=== PATIENT | female | born 1940 | race Caucasian/White ===

== ENCOUNTER → 2017-09-19 | Outpatient (CLI) | payer MEDICARE, OTHER ==
[~2017-09-19] MED LIST: ALLEGRA180 MG; ALTACE10 M1 PO; ASPIRIN81 M1 PO; ATIVAN0.5 MG PO; CALCIUM 1200 MG PO; DICYCLOMINE HCL10 MG PO; FLAGYL250 MG PO; IRON PO; LEVAQUIN500 MG PO; LEXAPRO20 MG PO; LIPITOR10 MG PO; LISINOPRIL10 MG PO; METFORMIN HCL500 MG PO; METOPROLOL TART25 MG PO; OMEPRAZOLE PO; PRIMIDONE50 MG PO; VITAMIN; VITAMIN B12; VITAMIN D-40400 UNIT; VITAMIN D3400 UNIT PO; [UNRECOGNIZED DRUG - OTHER] PO
--- NOTE | 2017-09-19 13:56 | Diagnostic Imaging Report ---
EXAM: DXA BONE DENSITY INDICATIONS: OSTEOPOROSIS SCREENING COMPARISON: None. FINDINGS: Proximal left femur bone mineral density (BMD) (g/cm2):0.8 Femur T-score (standard deviation relative to young adult mean BMD): -0.5 Femur Z-score (standard deviation relative to age-matched control group):1.7 Lumbar bone mineral density (BMD) (g/cm2):1.2 Lumbar T-score (standard deviation relative to young adult mean BMD): 1.2 Lumbar Z-score (standard deviation relative to age-matched control group):3.8 Change since prior exam (%): Femur:Not applicable. Spine:Not applicable. Change since oldest prior exam (%): Femur:Not applicable. Spine:Not applicable. CONCLUSION: Bone mineral density is classified as normal. Fracture risk is not increased. World Health Organization Classification: *The Z-score is provided for informational purposes. The T-score is preferable for clinical decisions. When comparing exams, a change of >4% is considered statistically significant. SUGGESTED RECOMMENDATIONS: Normal \T\ Osteopenia:Consideration should be given to use of calcium supplementation, daily multiple vitamins and adequate exercise, as preventive measures against osteoporosis, if clinically indicated. Osteoporosis \T\ Severe Osteoporosis:In addition to the above, consideration should be given to medical therapy against osteoporosis, if clinically indicated. Dictated by: John Jackson M.D. on 09/19/2017 at 13:55 Electronically approved by: John Jackson M.D. on 09/19/2017 at 13:55
== END ==
LOC: MAMMO 12:05
DX: Z12.31 Encounter for screening mammogram for malignant neoplasm of breast (principal); Z13.820 Encounter for screening for osteoporosis
CPT/HCPCS: 77080

== ENCOUNTER → 2018-02-11 | Outpatient (CLI) | payer MEDICARE, OTHER ==
--- NOTE | 2018-02-11 14:01 | Diagnostic Imaging Report ---
PROCEDURE:L-SPINE COMPLETE COMPARISON:05/24/16 INDICATIONS:LOW BACK PAIN FINDINGS: There are 5 lumbar-type vertebral bodies. The vertebral bodies are well-aligned without evidence of spondylolisthesis. Vertebral body heights are maintained. There are no fractures, lytic or blastic lesions. Multilevel degenerative changes, marked by disc space narrowing and mild marginal osteophytosis. L4-L5 and L5-S1 facet arthropathy. Atherosclerotic calcification of the abdominal aorta. CONCLUSION: Multilevel degenerative changes of lumbar spine. No acute fracture or subluxation. Dictated by: Du Enrique M.D. on 02/11/2018 at 14:04 Electronically approved by: Du Enrique M.D. on 02/11/2018 at 14:04
--- NOTE | 2018-02-11 14:02 | Diagnostic Imaging Report ---
PROCEDURE:HIPS BILAT TWO VWS(+/- PELVIS) INDICATION:Bilateral hip pain. COMPARISON:Right hip x-ray dated 10/11/09 FINDINGS: See conclusion. CONCLUSION: No acute fracture or dislocation of the bilateral hips. Mild degenerative changes. Dictated by: Du Enrique M.D. on 02/11/2018 at 14:06 Electronically approved by: Du Enrique M.D. on 02/11/2018 at 14:06
== END ==
LOC: RAD 12:40
DX: M54.5 Low back pain (principal); M25.552 Pain in left hip; M25.551 Pain in right hip
CPT/HCPCS: 72110; 73521

== ENCOUNTER → 2018-03-06 | Day surgery (SDC) | payer MEDICARE, OTHER ==
[2018-03-04 14:11] LABS: BASOPHILS # (AUTO) 0.1 (0.0-0.1); EOSINOPHILS # (AUTO) 0.2 (0.0-0.4); EOSINOPHILS % 1.9 % (0.0-6.0); HEMATOCRIT 30.3 % (34.2-44.1); HEMOGLOBIN 8.5 g/dL (12.0-16.0); LYMPHOCYTES # (AUTO) 2.5 (1.0-3.2); LYMPHOCYTES % 27.3 % (18.0-39.1); MEAN CORPUSCULAR HEMOGLOBIN 21.9 pg (28-32); MEAN CORPUSCULAR HGB CONC 28.1 g/dL (31-35); MEAN CORPUSCULAR VOLUME 77.9 fL (81-99); MONOCYTES # (AUTO) 0.7 (0.2-0.8); MONOCYTES % 7.8 % (4.4-11.3); NEUTROPHILS # (AUTO) 5.6 (2.1-6.9); NEUTROPHILS % 61.8 % (38.7-80.0); PLATELET COUNT 457 x10e3/uL (140-360); RED BLOOD COUNT 3.89 x10e6/uL (3.6-5.1); RED CELL DISTRIBUTION WIDTH 16.8 % (11.7-14.4)
[2018-03-04 15:18] LABS: HYPOCHROMASIA SLIGHT; PLATELET ESTIMATE MODERATELY INCREASED; PLATELET MORPHOLOGY COMMENT NORMAL; POIKILOCYTOSIS SLIGHT; RBC MORPHOLOGY COMMENT NORMAL
[~2018-03-06] MED LIST changes: +ACETAMINOPHEN 1000 MG/100 ML 100 ML IV ONE; +ASPIR 8181 MG; +CALCIUM ACETAT667 M1; +FENTANYL CITRATE/PF 100MCG/2 ML INJ ONE; +GABAPENTIN100 MG; +GLIMEPIRIDE2 MG PO; +GLYCOPYRROLATE INJ 0.2 MG/ML VIAL ONE; +LIDOCAINE HCL 2% LOCAL INJ 5 ML SDV VIAL INJ ONE; +MELATONIN3 MG PO; +METOCLOPRAMIDE HCL 10 MG/2ML VIAL ONE; +MIDAZOLAM HCL 2 MG/2 ML VIAL ONE; +NORVASC5 MG PO; +PROPOFOL IV EMULSION 10 MG/ML 50 ML VIAL ONE; +SYNTHROID50 MCG PO; +VITAMIN D1000 UNI1 PO
--- NOTE | 2018-03-06 14:26 | Operative Report ---
DATE OF PROCEDURE: March 06, 2018 REFERRING PHYSICIAN: Dr. Gene Moreland. PROCEDURE PERFORMED: Esophagogastroduodenoscopy with esophageal dilatation and biopsies. INDICATION FOR PROCEDURE: Dysphagia. MEDICATION: Patient was done under MAC. Please see anesthesiologist's note. PROCEDURE: With the patient in left lateral decubitus position, the flexible fiberoptic Olympus gastroscope was introduced into the esophagus under direct visualization without any difficulty. There was some patchy erythema noted in distal esophagus. There was a mild stricture noted at the GE junction. It was dilated to size 52-Cambodian Carias. The scope was then advanced with ease into the stomach, traversing a small hiatal hernia. There was a nodule that was noted in the hiatal hernia sac and that was biopsied. Multiple polyps were noted in the body of the stomach. They were hyperplastic appearing. Some were partially excised with cold biopsy forceps. The mucosa overlying the antrum revealed some diffuse erythema and low-grade edema and biopsies were obtained and sent to stain for H. pylori. The pylorus was intubated with ease and the scope was advanced all the way to the 2nd portion of the duodenum. The scope was then withdrawn slowly. Mucosa overlying the proximal 2nd portion and the duodenal bulb overall appeared to be within normal limits. The scope was then withdrawn back into the stomach and retroflexed and mucosa overlying the fundus appeared to be within normal limits. The previously described hiatal hernia was also noted in the retroflexed position. The scope was then straightened out and was subsequently withdrawn. Patient tolerated the procedure well. IMPRESSIONS 1. Distal esophagitis, mild. 2. Esophageal stricture at gastroesophageal junction, dilated to size 52-Cambodian Carias. 3. Small hiatal hernia, minute nodule in the hiatal hernia sac biopsied. 4. Gastritis, biopsied. Biopsies sent to stain for Helicobacter pylori. 5. Gastric polyps, body, hyperplastic appearing, some partially excised with cold biopsy forceps. PLAN: Follow up histology. Increase omeprazole to 40 mg 1 p.o. a.c. b.i.d. Job#: [id number] TA cc:GENE MORELAND MD
== END | disposition home or self-care (01) ==
LOC: ENDO 09:45
PROVIDERS: ATTEND Internal Medicine Gastroenterology
DX: K22.2 Esophageal obstruction (principal); K31.7 Polyp of stomach and duodenum; K29.70 Gastritis, unspecified, without bleeding; K21.9 Gastro-esophageal reflux disease without esophagitis; K44.9 Diaphragmatic hernia without obstruction or gangrene; K20.9 Esophagitis, unspecified; K31.89 Other diseases of stomach and duodenum; G62.9 Polyneuropathy, unspecified; I10 Essential (primary) hypertension; E11.9 Type 2 diabetes mellitus without complications; E03.9 Hypothyroidism, unspecified; B15.9 Hepatitis A without hepatic coma; R00.1 Bradycardia, unspecified; Z88.0 Allergy status to penicillin; Z01.810 Encounter for preprocedural cardiovascular examination; Z01.812 Encounter for preprocedural laboratory examination; Z79.84 Long term (current) use of oral hypoglycemic drugs; Z79.82 Long term (current) use of aspirin; Z68.35 Body mass index [BMI] 35.0-35.9, adult; Z86.73 Personal history of transient ischemic attack (TIA), and cerebral infarction without residual deficits; Z87.891 Personal history of nicotine dependence
CPT/HCPCS: 36415 ×2; 43239; 43450; 82948; 85025; 88305; 88312; 93005; J2001; J2250; J2765

== ENCOUNTER 2018-04-24 11:50 | Emergency (ER) | payer MEDICARE, OTHER ==
[~2018-04-24] VITALS: Ht 152.4 cm; Wt 84.4 kg
[~2018-04-24 11:50] MED LIST changes: -ACETAMINOPHEN 1000 MG/100 ML 100 ML IV ONE; -FENTANYL CITRATE/PF 100MCG/2 ML INJ ONE; -GLYCOPYRROLATE INJ 0.2 MG/ML VIAL ONE; -LIDOCAINE HCL 2% LOCAL INJ 5 ML SDV VIAL INJ ONE; -METOCLOPRAMIDE HCL 10 MG/2ML VIAL ONE; -MIDAZOLAM HCL 2 MG/2 ML VIAL ONE; -PROPOFOL IV EMULSION 10 MG/ML 50 ML VIAL ONE
[2018-04-24 12:59] LABS: BASOPHILS # (AUTO) 0.1 (0.0-0.1); BASOPHILS % 0.8 % (0.0-1.0); EOSINOPHILS # (AUTO) 0.1 (0.0-0.4); EOSINOPHILS % 1.4 % (0.0-6.0); HEMATOCRIT 32.9 % (34.2-44.1); HEMOGLOBIN 9.1 g/dL (12.0-16.0); LYMPHOCYTES # (AUTO) 2.2 (1.0-3.2); LYMPHOCYTES % 22.9 % (18.0-39.1); MEAN CORPUSCULAR HEMOGLOBIN 21.7 pg (28-32); MEAN CORPUSCULAR HGB CONC 27.7 g/dL (31-35); MEAN CORPUSCULAR VOLUME 78.5 fL (81-99); MONOCYTES # (AUTO) 0.6 (0.2-0.8); MONOCYTES % 6.1 % (4.4-11.3); NEUTROPHILS # (AUTO) 6.6 (2.1-6.9); NEUTROPHILS % 68.5 % (38.7-80.0); PLATELET COUNT 516 x10e3/uL (140-360); RED BLOOD COUNT 4.19 x10e6/uL (3.6-5.1); RED CELL DISTRIBUTION WIDTH 17.2 % (11.7-14.4)
--- NOTE | 2018-04-24 13:11 | Diagnostic Imaging Report ---
Examination: Single AP view of the chest. COMPARISON: 11/14/2015 INDICATION: Chest pain DISCUSSION: Lungs remain well-inflated. No focal airspace consolidation, pleural effusion, or pneumothorax. Atherosclerotic calcification of the thoracic aorta. Cardiomediastinal contour and pulmonary vasculature are otherwise within normal limits. No acute osseous abnormality. IMPRESSION: 1. No acute cardiopulmonary abnormalities. Signed by: Dr. Ant Salazar M.D. on 04/24/2018 1:07 PM
[2018-04-24 13:27] LABS: INR 1.06
[2018-04-24 13:28] LABS: PARTIAL THROMBOPLASTIN TIME 24.8 seconds (23.8-35.5)
[2018-04-24 13:42] LABS: ALANINE AMINOTRANSFERASE 19 IU/L (0-55); ALBUMIN 3.9 g/dL (3.5-5.0); ALBUMIN/GLOBULIN RATIO 1.2 (0.8-2.0); ALKALINE PHOSPHATASE 55 IU/L (40-150); AMYLASE 28 U/L (25-125); ANION GAP 16.6 mmol/L (8-16); BLOOD UREA NITROGEN 15 mg/dL (7-26); BUN/CREATININE RATIO 18 (6-25); CALCIUM 9.3 mg/dL (8.4-10.2); CARBON DIOXIDE 23 mmol/L (22-29); CHLORIDE 104 mmol/L (98-107); CREATINE KINASE 136 IU/L (29-168); CREATININE, SERUM 0.84 mg/dL (0.57-1.11); EST GLOMERULAR FILTRATION RATE > 60 ML/MIN (60-); GLUCOSE 119 mg/dL (74-118); LIPASE 20 U/L (8-78); MAGNESIUM 1.8 MG/DL (1.3-2.1); POTASSIUM 4.6 mmol/L (3.5-5.1); SODIUM 139 mmol/L (136-145)
[2018-04-24 14:53] LABS: CLARITY,URINE CLEAR (CLEAR); COLOR,URINE YELLOW (YELLOW); LEUKOCYTE ESTERASE ,URINE NEGATIVE (NEGATIVE); NITRITE,URINE NEGATIVE (NEGATIVE); PROTEIN,URINE DIPSTICK NEGATIVE (NEGATIVE)
[2018-04-24 14:54] LABS: BILIRUBIN,URINE NEGATIVE (NEGATIVE); KETONES,URINE NEGATIVE (NEGATIVE); URINE UROBILINOGEN 0.2 mg/dL (0.2 - 1)
[2018-04-24 15:03] LABS: BACTERIA,URINE RARE /HPF; EPITHELIAL CELLS,URINE FEW /LPF
[2018-04-24] MEDS ORDERED: SODIUM CHLORIDE 0.9% 50ML 50 ML ONE (15:24)
[2018-04-24] MEDS ORDERED: IOPAMIDOL 370 MG/ML 200 ML INFUS..BTL INJ ONE (15:25)
--- NOTE | 2018-04-24 15:32 | Diagnostic Imaging Report ---
EXAM: CT of the abdomen and pelvis WITH contrast HISTORY: Abdominal pain, diffuse COMPARISON: CT of the abdomen and pelvis October 10, 2009. TECHNIQUE: The abdomen and pelvis were scanned utilizing a multidetector helical scanner. Coronal and sagittal reformats are provided. PROTOCOL: Routine IV CONTRAST: 100 cc of Isovue-370. ORAL CONTRAST: Water RADIATION DOSE: Total DLP: 708.52 mGy*cm Estimated effective dose: (DLP x 0.015 x size factor) Dose modulation, iterative reconstruction, and/or weight based adjustment of the mA/kV was utilized to reduce the radiation dose to as low as reasonably achievable. COMPLICATIONS: None FINDINGS: Lower thorax: Mild lingular atelectasis versus scarring. Moderate sliding hiatal hernia. Stable right lung base 5 mm calcified granuloma. ABDOMEN/PELVIS: Hepatobiliary: Gallbladder is absent. The common bile duct remains dilated and minimal intrahepatic biliary dilation, likely the sequela reservoir effect. A few nonspecific, indeterminate liver hypodensities which are too small to characterize, statistically most likely small cysts. Spleen: No splenomegaly. Pancreas: No focal masses or ductal dilatation. Adrenals: Increased interval size of the indeterminate right adrenal gland nodule, increased from 12 mm to 19 mm. No left adrenal nodule. Kidneys/Ureters: Markedly decreased size of the exophytic lesion off the interpolar region of the right kidney, now 4 mm in diameter. No radiopaque stone or hydronephrosis. Pelvic Organs/Bladder: Unremarkable. Peritoneum/Retroperitoneum: No free air or fluid. Lymph nodes: No lymphadenopathy. Vessels: Diffuse scattered atherosclerotic vascular calcifications. GI Tract: The stomach is decompressed, the mean evaluation. No bowel dilation. Prominent sigmoid diverticulosis, without CT evidence of acute diverticulitis. Segments of the colon are not completely distended, which also limits evaluation of these regions. Bones and Soft Tissue: A small fat-containing umbilical hernia, without associated inflammatory changes. No aggressive osseous lesion. Stable right iliac bone island. Multilevel mild to severe degenerative changes of the axial skeleton. IMPRESSION: 1. Moderate hiatal hernia. 2. Interval increase in the indeterminate right adrenal nodule, now 19 mm. Recommend a follow-up nonemergent CT or MRI of the abdomen with and without contrast for further evaluation. 3. Likely multiple small hepatic cysts. 4. Colonic diverticulosis. 5. Small fat-containing umbilical hernia. Signed by: Artemio Starks.O., M.M.M. on 04/24/2018 3:28 PM
[2018-04-24 16:44] VITALS: BP 140/56
== END 2018-04-24 16:46 | disposition home or self-care (01) ==
LOC: ER 11:50
DX: R10.11 Right upper quadrant pain (principal); R10.12 Left upper quadrant pain; I10 Essential (primary) hypertension; E11.9 Type 2 diabetes mellitus without complications; E78.00 Pure hypercholesterolemia, unspecified; K21.9 Gastro-esophageal reflux disease without esophagitis; Z86.73 Personal history of transient ischemic attack (TIA), and cerebral infarction without residual deficits
CPT/HCPCS: 36415; 71045; 74177; 80053; 81001; 82150; 82550; 82553; 83605; 83690; 83735; 83880; 84484; 85025; 85610; 85730; 87086; 93005; 99283; Q9967

== ENCOUNTER → 2019-06-19 | Outpatient (CLI) | payer MEDICARE, OTHER | LOC: MAMMO 12:37 | DX: Z12.31 Encounter for screening mammogram for malignant neoplasm of breast (principal) | CPT/HCPCS: 77067 ==

== ENCOUNTER → 2019-09-03 | Day surgery (SDC) | payer MEDICARE, OTHER ==
[2019-09-01 14:19] LABS: BASOPHILS # (AUTO) 0.1 (0.0-0.1); BASOPHILS % 0.9 % (0.0-1.0); EOSINOPHILS # (AUTO) 0.1 (0.0-0.4); HEMATOCRIT 31.6 % (34.2-44.1); HEMOGLOBIN 8.6 g/dL (12.0-16.0); LYMPHOCYTES # (AUTO) 1.4 (1.0-3.2); MEAN CORPUSCULAR HEMOGLOBIN 20.8 pg (28-32); MEAN CORPUSCULAR HGB CONC 27.2 g/dL (31-35); MEAN CORPUSCULAR VOLUME 76.3 fL (81-99); MONOCYTES # (AUTO) 0.7 (0.2-0.8); MONOCYTES % 7.9 % (4.4-11.3); NEUTROPHILS # (AUTO) 6.6 (2.1-6.9); NEUTROPHILS % 73.9 % (38.7-80.0); PLATELET COUNT 499 x10e3/uL (140-360); RED BLOOD COUNT 4.14 x10e6/uL (3.6-5.1); RED CELL DISTRIBUTION WIDTH 17.8 % (11.7-14.4)
[2019-09-01 14:33] LABS: BLOOD UREA NITROGEN 12 mg/dL (7-26); BUN/CREATININE RATIO 16 (6-25); CALCIUM 9.8 mg/dL (8.4-10.2); CARBON DIOXIDE 25 mmol/L (22-29); CHLORIDE 102 mmol/L (98-107); CREATININE, SERUM 0.74 mg/dL (0.57-1.11); EST GLOMERULAR FILTRATION RATE > 60 ML/MIN (60-); GLUCOSE 71 mg/dL (74-118); SODIUM 137 mmol/L (136-145)
--- NOTE | 2019-09-01 15:36 | Diagnostic Imaging Report ---
EXAMINATION: CHEST 2 VIEWS INDICATION: Pre-operative COMPARISON: Chest radiograph 04/24/2018 FINDINGS: LINES/TUBES:None LUNGS:The lungs are well-inflated. No focal consolidation or pulmonary edema. 1.4 cm nodular opacity in the right suprahilar area. PLEURA:No pleural effusion or pneumothorax. MEDIASTINUM:The cardiomediastinal silhouette appears normal in size and shape. BONES/SOFT TISSUES:No acute osseous injury. ABDOMEN:No free air under the diaphragm. IMPRESSION: No focal pneumonia or pulmonary edema. 1.4 cm nodular opacity in the right suprahilar area may represent a pulmonary nodule. Recommend nonurgent chest CT for further evaluation. Signed by: Liane Turner MD on 09/01/2019 3:33 PM
[~2019-09-03] MED LIST changes: +ACETAMINOPHEN 1000 MG/100 ML IV ONE; +ACETAMINOPHEN/CODEINE 300MG - 30MG TAB ONE; +BACITRACIN 50,000 UNIT VIAL ONE; +BUPIVACAINE HCL 0.5% INJ 30 ML VIAL INJ ONE; +CEFAZOLIN SOD 1 GM/NS 50ML 0 ML IV ONE; +CLINDAMYCIN PHOS 900MG/ 50ML 50 ML IV ONE; +DEXAMETHASONE SOD PHOS INJ 4 MG/ML VIAL ONE; +EPHEDRINE SULFATE INJ 50 MG/ML VIAL ONE; +FENTANYL CITRATE/PF 100MCG/2 ML INJ ONE; +LEXAPRO10 MG PO; +LIDOCAINE HCL 2% LOCAL INJ 5 ML SDV VIAL INJ ONE; +MIDAZOLAM HCL 2 MG/2 ML VIAL ONE; +ONDANSETRON HCL INJ 2MG/ML 2ML 2 MG/ML VIAL ONE; +PROPOFOL IV EMULSION 10 MG/ML 20 ML VIAL ONE; +SEVOFLURANE INHAL SOLN 250 ML PEN BTL ONE
[2019-09-03 12:43] VITALS: BP 120/51
--- NOTE | 2019-09-04 23:36 | Operative Report ---
DATE OF PROCEDURE: 09/03/2019 SURGEON: Santosh Phillips MD PREOPERATIVE DIAGNOSIS: Left bimalleolar equivalent ankle fracture. POSTOPERATIVE DIAGNOSIS: Left bimalleolar equivalent ankle fracture. OPERATION AND PROCEDURE PERFORMED: The patient underwent closed reduction of the left ankle mortise and open reduction and internal fixation of a left displaced fibular fracture. RAYMOND MILL OPERATOR: CARLOS Nunez ANESTHESIA: General endotracheal intubation anesthesia. IV FLUIDS: Per anesthesia record. BRIEF DESCRIPTION OF THE PATIENT'S OPERATIVE PROCEDURE: Ms. Colindres was taken to the operating room and placed in supine position on the operating table. Following induction of general anesthesia as well as endotracheal intubation, the patient's left lower extremity was examined under anesthesia. She was found to have bruising and swelling about her left ankle joint. Fluoroscopic evaluation of the ankle joint demonstrated a displaced fibular fracture. A stress mortise view was performed at the beginning of the case and this demonstrated disruption of the ankle mortise with widening of the medial clear space. The patient's lower extremity was prepped and draped in standard surgical fashion. The case was begun by reducing the ankle mortise in a closed fashion. An incision was then created directly over the fibula. This incision was carried through the skin only. Blunt dissection used to deepen the incision to the level of the patient's fracture site. The fracture site was easily isolated. A curette was used to clean the hematoma from the fracture site. The fracture was then copiously irrigated. The fracture was then reduced and held in place with a fracture reduction clamp. A single interfragmentary screw was used to provide compression across the patient's fracture site in anterior to posterior direction. A plate was then contoured to the lateral aspect of the fibula and affixed to the tibia with combinations of both cortical and cancellous screws. The position of the plate as well as the reduction of the patient's fracture site was assessed fluoroscopically and found to be appropriate. The wound was again copiously irrigated. Soft tissues were closed in a multilayer fashion. Sterile dressings were applied as well as a well-padded multisided splint. The patient was then awakened and taken to the postanesthesia care in stable condition. Nicolasa Cole acted as marketing operations assistant for this case and was necessary for prepping and draping the patient as well as retraction of soft tissues and the reduction of the ankle joint and the closure of the wounds to allow this case to be successful. MD TEJAL Samuels/YAO /[id number]
== END | disposition home or self-care (01) ==
LOC: OR 07:27
PROVIDERS: ATTEND Specialist
DX: S82.842A Displaced bimalleolar fracture of left lower leg, initial encounter for closed fracture (principal); S93.422A Sprain of deltoid ligament of left ankle, initial encounter; M19.90 Unspecified osteoarthritis, unspecified site; E11.9 Type 2 diabetes mellitus without complications; I10 Essential (primary) hypertension; E78.5 Hyperlipidemia, unspecified; G25.2 Other specified forms of tremor; E78.00 Pure hypercholesterolemia, unspecified; E03.9 Hypothyroidism, unspecified; K21.9 Gastro-esophageal reflux disease without esophagitis; F32.9 Major depressive disorder, single episode, unspecified; F41.9 Anxiety disorder, unspecified; W07.XXXA Fall from chair, initial encounter; Y93.89 Activity, other specified; Y92.89 Other specified places as the place of occurrence of the external cause; Y99.8 Other external cause status; Z88.0 Allergy status to penicillin; Z01.810 Encounter for preprocedural cardiovascular examination; Z01.812 Encounter for preprocedural laboratory examination; Z01.818 Encounter for other preprocedural examination; Z79.82 Long term (current) use of aspirin; Z79.84 Long term (current) use of oral hypoglycemic drugs; Z68.35 Body mass index [BMI] 35.0-35.9, adult; Z86.73 Personal history of transient ischemic attack (TIA), and cerebral infarction without residual deficits; Z87.891 Personal history of nicotine dependence
CPT/HCPCS: 27792; 36415 ×2; 71046; 80048; 82948; 85025; 93005; C1713 ×5; J0131; J1100; J2001; J2250; J2405; J2704; J3010; J0690

== ENCOUNTER → 2019-09-26 | Outpatient (CLI) | payer MEDICARE, OTHER ==
[~2019-09-26] MED LIST changes: -ACETAMINOPHEN 1000 MG/100 ML IV ONE; -ACETAMINOPHEN/CODEINE 300MG - 30MG TAB ONE; -BACITRACIN 50,000 UNIT VIAL ONE; -BUPIVACAINE HCL 0.5% INJ 30 ML VIAL INJ ONE; -CEFAZOLIN SOD 1 GM/NS 50ML 0 ML IV ONE; -CLINDAMYCIN PHOS 900MG/ 50ML 50 ML IV ONE; -DEXAMETHASONE SOD PHOS INJ 4 MG/ML VIAL ONE; -EPHEDRINE SULFATE INJ 50 MG/ML VIAL ONE; -FENTANYL CITRATE/PF 100MCG/2 ML INJ ONE; +IOPAMIDOL 370 MG/ML 200 ML INFUS..BTL INJ ONE; -LIDOCAINE HCL 2% LOCAL INJ 5 ML SDV VIAL INJ ONE; -MIDAZOLAM HCL 2 MG/2 ML VIAL ONE; -ONDANSETRON HCL INJ 2MG/ML 2ML 2 MG/ML VIAL ONE; -PROPOFOL IV EMULSION 10 MG/ML 20 ML VIAL ONE; -SEVOFLURANE INHAL SOLN 250 ML PEN BTL ONE; +SODIUM CHLORIDE 0.9% 50ML 50 ML ONE
[2019-09-26 14:46] LABS: BLOOD UREA NITROGEN 8 mg/dL (7-26); BUN/CREATININE RATIO 10 (6-25); CREATININE, SERUM 0.82 mg/dL (0.57-1.11); EST GLOMERULAR FILTRATION RATE > 60 ML/MIN (60-)
--- NOTE | 2019-09-26 16:09 | Diagnostic Imaging Report ---
CT of the chest, with contrast, 09/26/2019 History: Solitary pulmonary nodule. Comparison: No chest CT comparisons available for review., Comparison is made to chest radiograph dated 09/01/[address] dated 04/24/2018 Technique: Multidetector CT scanning of the chest was performed from the level of the thoracic inlet to the upper abdomen with IV contrast. Images were reformatted into coronal and sagittal planes. Dose reduction: The examination was performed according to departmental dose-optimization program which includes automated exposure control, adjustment of the mA and/or kV according to patient size and/or use of iterative reconstruction technique. Findings: The visualized portions of the thyroid gland are unremarkable. There is no axillary, mediastinal, or hilar lymphadenopathy. The heart is within normal limits of size. There is no pericardial effusion. The thoracic aorta is of normal course and caliber. The main pulmonary artery is prominent measuring 3.5 cm in diameter. The trachea and central airways are clear. The lungs demonstrate atelectasis within the lingula and bilateral bases. No suspicious pulmonary nodule is identified. The findings on recent chest radiograph were likely artifactual. There is no pleural effusion or pneumothorax. A moderate hiatal hernia is present. Limited evaluation of the upper abdomen demonstrates multiple hepatic cysts which are unchanged from prior abdominal CT. The gallbladder is surgically absent. There is a 2.3 cm right adrenal nodule. No acute osseous abnormalities are identified. IMPRESSION: 1. The 1.4 cm nodular opacity identified on recent chest radiograph is not seen on the current chest CT and was likely artifactual. No suspicious pulmonary nodules are identified. 2. Prominent pulmonary artery measuring up to 3.5 cm in diameter. Correlate with underlying pulmonary hypertension. 3. 2.3 cm right adrenal nodule. Adrenal protocol CT or MRI is recommended for further evaluation. Signed by: Dick Sandoval MD on 09/26/2019 4:06 PM
== END ==
LOC: CT 13:28
DX: Z09 Encounter for follow-up examination after completed treatment for conditions other than malignant neoplasm (principal); R91.1 Solitary pulmonary nodule
CPT/HCPCS: 36415; 71260; 82565; 84520; Q9967

== ENCOUNTER 2020-09-03 15:00 | Outpatient (RCR) | payer MEDICARE, OTHER ==
[~2020-09-03 15:00] MED LIST changes: -IOPAMIDOL 370 MG/ML 200 ML INFUS..BTL INJ ONE; -SODIUM CHLORIDE 0.9% 50ML 50 ML ONE
== END 2020-09-05 ==
LOC: PT 15:00
PROVIDERS: ATTEND Specialist
DX: S33.5XXD Sprain of ligaments of lumbar spine, subsequent encounter (principal); M62.81 Muscle weakness (generalized); M70.72 Other bursitis of hip, left hip; R26.89 Other abnormalities of gait and mobility

== ENCOUNTER 2020-09-29 13:00 | Outpatient (RCR) | payer MEDICARE, OTHER | END 2020-10-03 | LOC: PT 13:00 | PROVIDERS: ATTEND Specialist | DX: S33.5XXD Sprain of ligaments of lumbar spine, subsequent encounter (principal); M62.81 Muscle weakness (generalized); M70.72 Other bursitis of hip, left hip; R26.89 Other abnormalities of gait and mobility ==

== ENCOUNTER 2020-10-11 12:56 | Outpatient (RCR) | payer MEDICARE, OTHER | END 2020-11-03 | LOC: PT 12:56 | PROVIDERS: ATTEND Specialist | DX: S33.5XXD Sprain of ligaments of lumbar spine, subsequent encounter (principal); M62.81 Muscle weakness (generalized); M70.72 Other bursitis of hip, left hip; R26.89 Other abnormalities of gait and mobility ==

== ENCOUNTER → 2020-12-01 | Outpatient (CLI) | payer OTHER, MEDICARE | LOC: RAD 14:14 | PROVIDERS: ATTEND Internal Medicine Cardiovascular Disease | DX: R05 Cough (principal); R06.02 Shortness of breath | CPT/HCPCS: 71046 ==

== ENCOUNTER → 2021-01-06 | Outpatient (CLI) | payer MEDICARE, OTHER ==
[~2021-01-06] MED LIST changes: +HEPARIN SOD (PORCINE) 1000 UNIT/ML SDV IV ONE
== END ==
LOC: NM 13:54
PROVIDERS: ATTEND Internal Medicine Gastroenterology
DX: D64.9 Anemia, unspecified (principal)
CPT/HCPCS: 78278; A9512 ×2; J1644

== ENCOUNTER → 2021-03-22 | Outpatient (CLI) | payer MEDICARE, OTHER ==
[~2021-03-22] MED LIST changes: -HEPARIN SOD (PORCINE) 1000 UNIT/ML SDV IV ONE; +IOPAMIDOL 370 MG/ML 200 ML INFUS..BTL INJ ONE; +SODIUM CHLORIDE 0.9% 50ML 0 ML ONE; +SODIUM CHLORIDE 0.9% 50ML 50 ML ONE
== END ==
LOC: CT 13:59
PROVIDERS: ATTEND Internal Medicine
DX: R06.09 Other forms of dyspnea (principal)
CPT/HCPCS: 71260; Q9967

== ENCOUNTER 2021-05-20 19:29 | Inpatient (IN) | payer MEDICARE, OTHER ==
[~2021-05-20] VITALS: Ht 152.4 cm; Wt 82.6 kg
[~2021-05-20 19:29] MED LIST changes: -IOPAMIDOL 370 MG/ML 200 ML INFUS..BTL INJ ONE; -SODIUM CHLORIDE 0.9% 50ML 0 ML ONE; -SODIUM CHLORIDE 0.9% 50ML 50 ML ONE
[2021-05-20 20:08] LABS: BASOPHILS # (AUTO) 0.1 (0.0-0.1); BASOPHILS % 0.4 % (0.0-1.0); EOSINOPHILS % 0.1 % (0.0-6.0); HEMATOCRIT 28.2 % (34.2-44.1); HEMOGLOBIN 7.6 g/dL (12.0-16.0); LYMPHOCYTES # (AUTO) 1.8 (1.0-3.2); LYMPHOCYTES % 9.4 % (18.0-39.1); MEAN CORPUSCULAR HEMOGLOBIN 19.5 pg (28-32); MEAN CORPUSCULAR VOLUME 72.3 fL (81-99); MONOCYTES # (AUTO) 1.1 (0.2-0.8); MONOCYTES % 5.9 % (4.4-11.3); NEUTROPHILS # (AUTO) 16.1 (2.1-6.9); NEUTROPHILS % 83.7 % (38.7-80.0); PLATELET COUNT 473 x10e3/uL (140-360); RED CELL DISTRIBUTION WIDTH 17.9 % (11.7-14.4)
[2021-05-20 20:22] LABS: ALBUMIN 3.4 g/dL (3.5-5.0); ALBUMIN/GLOBULIN RATIO 1.1 (0.8-2.0); ANION GAP 14.7 mmol/L (8-16); CALCIUM 8.3 mg/dL (8.4-10.2); CREATININE, SERUM 0.85 mg/dL (0.57-1.11); POTASSIUM 3.7 mmol/L (3.5-5.1)
[2021-05-20] MEDS ORDERED: CEFTRIAXONE 1 GM in SODIUM CHLORIDE 0.9% 50ML 50 ML IV ONE (20:45)
[2021-05-20] MEDS ORDERED: SODIUM CHLORIDE 0.9% 1000ML 1,000 ML ONE (21:20)
[2021-05-20] MEDS ORDERED: SODIUM CHLORIDE 0.9% 500ML 500 ML IV ONE (21:45)
[2021-05-20] MEDS: INSULIN REGULAR, HUMAN 100 UNIT/1 ML SQ SCH (22:00)
[2021-05-20] MEDS: ALBUTEROL SULF 0.083% NEB SOLN 3 ML NEB NEB SCH (22:00)
[2021-05-20] MEDS ORDERED: DEXTROSE 50% SYRINGE 50 ML IV PRN (22:00)
[2021-05-21] VITALS (12 sets, daily range): BP systolic 145–195; BP diastolic 43–68
[2021-05-21] MEDS ORDERED: INFLUENZA VIRUS VAC SPLIT INJ 0.5 ML SYR IM SCH (00:01)
[2021-05-21] MEDS ORDERED: PNEUMOCOCCAL VACCINE POLYVALENT 23 MCG/0.5 ML VIAL IM SCH (00:01)
[2021-05-21] MEDS: SODIUM CHLORIDE 0.9% 1000ML 1,000 ML IV SCH ×2 (00:49→10:18)
[2021-05-21 06:16] LABS: BASOPHILS # (AUTO) 0.1 (0.0-0.1); BASOPHILS % 0.4 % (0.0-1.0); EOSINOPHILS # (AUTO) 0.1 (0.0-0.4); EOSINOPHILS % 0.5 % (0.0-6.0); HEMATOCRIT 28.4 % (34.2-44.1); HEMOGLOBIN 7.5 g/dL (12.0-16.0); LYMPHOCYTES # (AUTO) 2.4 (1.0-3.2); LYMPHOCYTES % 17.3 % (18.0-39.1); MEAN CORPUSCULAR HEMOGLOBIN 19.3 pg (28-32); MEAN CORPUSCULAR HGB CONC 26.4 g/dL (31-35); MONOCYTES % 7.5 % (4.4-11.3); NEUTROPHILS # (AUTO) 10.1 (2.1-6.9); NEUTROPHILS % 73.8 % (38.7-80.0); PLATELET COUNT 445 x10e3/uL (140-360); RED BLOOD COUNT 3.89 x10e6/uL (3.6-5.1); RED CELL DISTRIBUTION WIDTH 17.9 % (11.7-14.4)
[2021-05-21 06:47] LABS: ANION GAP 13.3 mmol/L (8-16); CALCIUM 7.9 mg/dL (8.4-10.2); CREATININE, SERUM 0.63 mg/dL (0.57-1.11); POTASSIUM 3.3 mmol/L (3.5-5.1)
[2021-05-21 06:48] LABS: CREATINE KINASE 68 IU/L (29-168)
[2021-05-21] MEDS: INSULIN REGULAR, HUMAN 100 UNIT/1 ML SQ SCH ×4 (07:30→19:57)
[2021-05-21] MEDS: ACETAMINOPHEN 325 MG TAB PO PRN ×3 (08:26→20:17)
[2021-05-21] MEDS: CEFTRIAXONE 1 GM in SODIUM CHLORIDE 0.9% 50ML 50 ML IV SCH (08:32)
[2021-05-21] MEDS ORDERED: METHYLPREDNISOLONE SOD SUCC 40 MG/ML VIAL 1ML IV NR (11:15)
[2021-05-21] MEDS: IPRATROPIUM BROMIDE 0.02% 2.5 ML NEB NEB SCH (12:00)
[2021-05-21] MEDS: AMLODIPINE BESYLATE 5 MG TAB PO SCH (12:13)
[2021-05-21 13:49] LABS: CREATINE KINASE MB 1.5 ng/mL (0-5.0)
[2021-05-21] MEDS ORDERED: POTASSIUM CHLORIDE 20 MEQ TAB CR PO NR (14:30)
[2021-05-21] MEDS ORDERED: HYDRALAZINE HCL 20 MG/ML VIAL IV PRN (14:45)
[2021-05-21 15:30] LABS: BASOPHILS # (AUTO) 0.1 (0.0-0.1); BASOPHILS % 0.5 % (0.0-1.0); EOSINOPHILS % 0.3 % (0.0-6.0); HEMATOCRIT 29.3 % (34.2-44.1); HEMOGLOBIN 7.7 g/dL (12.0-16.0); LYMPHOCYTES # (AUTO) 0.8 (1.0-3.2); LYMPHOCYTES % 7.2 % (18.0-39.1); MEAN CORPUSCULAR HEMOGLOBIN 19.2 pg (28-32); MEAN CORPUSCULAR HGB CONC 26.3 g/dL (31-35); MEAN CORPUSCULAR VOLUME 72.9 fL (81-99); MONOCYTES # (AUTO) 0.2 (0.2-0.8); MONOCYTES % 1.9 % (4.4-11.3); NEUTROPHILS # (AUTO) 10.2 (2.1-6.9); NEUTROPHILS % 88.1 % (38.7-80.0); PLATELET COUNT 460 x10e3/uL (140-360); RED BLOOD COUNT 4.02 x10e6/uL (3.6-5.1)
[2021-05-21 15:48] LABS: MAGNESIUM 1.6 MG/DL (1.3-2.1)
[2021-05-21] MEDS: LISINOPRIL 10 MG TAB PO SCH (16:05)
[2021-05-21 16:08] LABS: FERRITIN 12.97 ng/mL (4.63-204.00)
[2021-05-21 16:51] LABS: HYPOCHROMASIA MODERATE; PLATELET ESTIMATE ADEQUATE; PLATELET MORPHOLOGY COMMENT NORMAL
[2021-05-21] MEDS ORDERED: CYANOCOBALAMIN INJ 1,000 MCG/ML VIAL IM ONE (18:15)
[2021-05-21] MEDS ORDERED: MYSOLINE50 MG PO (19:02)
[2021-05-21 20:20] LABS: CREATINE KINASE MB 1.6 ng/mL (0-5.0)
[2021-05-21] MEDS ORDERED: ATORVASTATIN 10 MG TAB PO SCH (21:00)
[2021-05-22] VITALS (7 sets, daily range): BP systolic 150–173; BP diastolic 55–72
[2021-05-22] MEDS: PRIMIDONE 50 MG TAB PO SCH ×2 (00:31→20:10)
[2021-05-22] MEDS: ALBUTEROL SULF 0.083% NEB SOLN 3 ML NEB NEB SCH ×4 (01:57→13:15)
[2021-05-22] MEDS: IPRATROPIUM BROMIDE 0.02% 2.5 ML NEB NEB SCH ×5 (01:57→21:58)
[2021-05-22] MEDS: LEVOTHYROXINE SODIUM 50 MCG TAB PO SCH (05:39)
[2021-05-22] MEDS: INSULIN REGULAR, HUMAN 100 UNIT/1 ML SQ SCH ×4 (07:30→20:17)
[2021-05-22] MEDS: AMLODIPINE BESYLATE 5 MG TAB PO SCH (09:13)
[2021-05-22] MEDS: CEFTRIAXONE 1 GM in SODIUM CHLORIDE 0.9% 50ML 50 ML IV SCH (09:13)
[2021-05-22] MEDS: CYANOCOBALAMIN INJ 1,000 MCG/ML VIAL IM SCH (09:13)
[2021-05-22] MEDS: IRON SUCROSE 100 MG in SODIUM CHLORIDE 0.9% 100 ML 100 ML IV SCH (10:00)
[2021-05-22 10:03] LABS: CALCIUM 8.2 mg/dL (8.4-10.2); CREATININE, SERUM 0.7 mg/dL (0.57-1.11)
[2021-05-22] MEDS ORDERED: IOPAMIDOL 370 MG/ML 200 ML INFUS..BTL INJ ONE (11:45)
[2021-05-22] MEDS ORDERED: SODIUM CHLORIDE 0.9% 50ML 50 ML ONE (11:45)
[2021-05-22] MEDS ORDERED: POTASSIUM CHLORIDE 20 MEQ TAB CR PO NR (13:00)
[2021-05-22] MEDS: LISINOPRIL 10 MG TAB PO SCH (16:41)
[2021-05-23] VITALS (8 sets, daily range): BP systolic 157–181; BP diastolic 54–74
[2021-05-23] MEDS: LEVOTHYROXINE SODIUM 50 MCG TAB PO SCH (05:04)
[2021-05-23] MEDS: ACETAMINOPHEN 325 MG TAB PO PRN (05:05)
[2021-05-23] MEDS: ALBUTEROL SULF 0.083% NEB SOLN 3 ML NEB NEB SCH ×6 (07:15→22:14)
[2021-05-23] MEDS: IPRATROPIUM BROMIDE 0.02% 2.5 ML NEB NEB SCH ×3 (07:15→22:13)
[2021-05-23] MEDS: INSULIN REGULAR, HUMAN 100 UNIT/1 ML SQ SCH ×4 (07:30→20:55)
[2021-05-23] MEDS ORDERED: SODIUM CHLORIDE 0.9% 250ML 250 ML ONE (08:06)
[2021-05-23 09:12] LABS: ANION GAP 15.9 mmol/L (8-16); CHLORIDE 105 mmol/L (98-107)
[2021-05-23] MEDS: AMLODIPINE BESYLATE 5 MG TAB PO SCH (09:20)
[2021-05-23] MEDS: CYANOCOBALAMIN INJ 1,000 MCG/ML VIAL IM SCH (09:20)
[2021-05-23 09:30] LABS: BLOOD UREA NITROGEN < 5 mg/dL (7-26); BUN/CREATININE RATIO 8 (6-25); CALCIUM 8.6 mg/dL (8.4-10.2); CARBON DIOXIDE 26 mmol/L (22-29); CREATININE, SERUM 0.65 mg/dL (0.57-1.11); EST GLOMERULAR FILTRATION RATE 88 ML/MIN (60-); GLUCOSE 127 mg/dL (74-118); POTASSIUM 3.9 mmol/L (3.5-5.1); SODIUM 143 mmol/L (136-145)
[2021-05-23] MEDS: CEFTRIAXONE 1 GM in SODIUM CHLORIDE 0.9% 50ML 50 ML IV SCH (10:00)
[2021-05-23] MEDS: IRON SUCROSE 100 MG in SODIUM CHLORIDE 0.9% 100 ML 100 ML IV SCH (11:00)
[2021-05-23] MEDS: LISINOPRIL 10 MG TAB PO SCH (17:08)
[2021-05-23] MEDS: PRIMIDONE 50 MG TAB PO SCH (20:52)
[2021-05-23] MEDS: ZOLPIDEM TARTRATE 5 MG TAB PO PRN (21:37)
[2021-05-24] VITALS (8 sets, daily range): BP systolic 142–176; BP diastolic 51–75
[2021-05-24] MEDS: IPRATROPIUM BROMIDE 0.02% 2.5 ML NEB NEB SCH ×4 (05:17→20:42)
[2021-05-24] MEDS: ALBUTEROL SULF 0.083% NEB SOLN 3 ML NEB NEB SCH ×5 (05:18→20:43)
[2021-05-24 05:45] LABS: BASOPHILS # (AUTO) 0.1 (0.0-0.1); BASOPHILS % 0.9 % (0.0-1.0); EOSINOPHILS # (AUTO) 0.5 (0.0-0.4); EOSINOPHILS % 4.2 % (0.0-6.0); HEMOGLOBIN 7.9 g/dL (12.0-16.0); LYMPHOCYTES # (AUTO) 2.4 (1.0-3.2); LYMPHOCYTES % 19.9 % (18.0-39.1); MEAN CORPUSCULAR HEMOGLOBIN 19.3 pg (28-32); MEAN CORPUSCULAR HGB CONC 26.3 g/dL (31-35); MEAN CORPUSCULAR VOLUME 73.3 fL (81-99); MONOCYTES # (AUTO) 1.1 (0.2-0.8); MONOCYTES % 8.7 % (4.4-11.3); NEUTROPHILS # (AUTO) 7.9 (2.1-6.9); NEUTROPHILS % 65.6 % (38.7-80.0); PLATELET COUNT 518 x10e3/uL (140-360); RED BLOOD COUNT 4.09 x10e6/uL (3.6-5.1); RED CELL DISTRIBUTION WIDTH 18.3 % (11.7-14.4)
[2021-05-24] MEDS: LEVOTHYROXINE SODIUM 50 MCG TAB PO SCH (06:05)
[2021-05-24] MEDS: INSULIN REGULAR, HUMAN 100 UNIT/1 ML SQ SCH ×4 (07:30→21:32)
[2021-05-24] MEDS: CEFTRIAXONE 1 GM in SODIUM CHLORIDE 0.9% 50ML 50 ML IV SCH (08:37)
[2021-05-24] MEDS: AMLODIPINE BESYLATE 5 MG TAB PO SCH (08:41)
[2021-05-24] MEDS: CYANOCOBALAMIN INJ 1,000 MCG/ML VIAL IM SCH (08:41)
[2021-05-24] MEDS: IRON SUCROSE 100 MG in SODIUM CHLORIDE 0.9% 100 ML 100 ML IV SCH (08:49)
[2021-05-24] MEDS: LISINOPRIL 10 MG TAB PO SCH (17:00)
[2021-05-24] MEDS: PRIMIDONE 50 MG TAB PO SCH (20:24)
[2021-05-24] MEDS: ACETAMINOPHEN 325 MG TAB PO PRN (21:37)
[2021-05-24] MEDS: ZOLPIDEM TARTRATE 5 MG TAB PO PRN (21:37)
[2021-05-25] VITALS (8 sets, daily range): BP systolic 145–178; BP diastolic 54–70
[2021-05-25] MEDS: ALBUTEROL SULF 0.083% NEB SOLN 3 ML NEB NEB SCH ×5 (01:15→20:35)
[2021-05-25] MEDS: IPRATROPIUM BROMIDE 0.02% 2.5 ML NEB NEB SCH ×3 (06:00→20:35)
[2021-05-25] MEDS: LEVOTHYROXINE SODIUM 50 MCG TAB PO SCH (06:12)
[2021-05-25] MEDS: INSULIN REGULAR, HUMAN 100 UNIT/1 ML SQ SCH ×4 (07:30→22:30)
[2021-05-25] MEDS: CYANOCOBALAMIN INJ 1,000 MCG/ML VIAL IM SCH (09:52)
[2021-05-25] MEDS: AMLODIPINE BESYLATE 5 MG TAB PO SCH (09:52)
[2021-05-25] MEDS: IRON SUCROSE 100 MG in SODIUM CHLORIDE 0.9% 100 ML 100 ML IV SCH (09:52)
[2021-05-25] MEDS: CEFTRIAXONE 1 GM in SODIUM CHLORIDE 0.9% 50ML 50 ML IV SCH (12:14)
[2021-05-25] MEDS: LISINOPRIL 10 MG TAB PO SCH (16:33)
[2021-05-25] MEDS: PRIMIDONE 50 MG TAB PO SCH (20:39)
[2021-05-25] MEDS: ZOLPIDEM TARTRATE 5 MG TAB PO PRN (22:30)
[2021-05-26 00:43] VITALS: BP 158/66
[2021-05-26] MEDS: IPRATROPIUM BROMIDE 0.02% 2.5 ML NEB NEB SCH ×3 (04:40→15:25)
[2021-05-26] MEDS: ALBUTEROL SULF 0.083% NEB SOLN 3 ML NEB NEB SCH ×4 (04:40→15:25)
[2021-05-26 05:23] VITALS: BP 161/62
[2021-05-26 05:58] LABS: BASOPHILS # (AUTO) 0.1 (0.0-0.1); BASOPHILS % 0.7 % (0.0-1.0); EOSINOPHILS # (AUTO) 0.3 (0.0-0.4); EOSINOPHILS % 2.7 % (0.0-6.0); HEMATOCRIT 30.3 % (34.2-44.1); HEMOGLOBIN 8.1 g/dL (12.0-16.0); LYMPHOCYTES # (AUTO) 2.3 (1.0-3.2); LYMPHOCYTES % 23.1 % (18.0-39.1); MEAN CORPUSCULAR HGB CONC 26.7 g/dL (31-35); MEAN CORPUSCULAR VOLUME 74.6 fL (81-99); MONOCYTES # (AUTO) 0.9 (0.2-0.8); MONOCYTES % 9.5 % (4.4-11.3); NEUTROPHILS # (AUTO) 6.3 (2.1-6.9); NEUTROPHILS % 63.3 % (38.7-80.0); PLATELET COUNT 442 x10e3/uL (140-360); RED BLOOD COUNT 4.06 x10e6/uL (3.6-5.1); RED CELL DISTRIBUTION WIDTH 20.2 % (11.7-14.4)
[2021-05-26 06:26] LABS: ANION GAP 14.6 mmol/L (8-16); CALCIUM 8.7 mg/dL (8.4-10.2); CREATININE, SERUM 0.67 mg/dL (0.57-1.11); POTASSIUM 3.6 mmol/L (3.5-5.1)
[2021-05-26] MEDS: LEVOTHYROXINE SODIUM 50 MCG TAB PO SCH (06:31)
[2021-05-26 07:48] VITALS: BP 154/49
[2021-05-26 07:59] VITALS: BP 154/49
[2021-05-26] MEDS: CYANOCOBALAMIN INJ 1,000 MCG/ML VIAL IM SCH (08:54)
[2021-05-26] MEDS: AMLODIPINE BESYLATE 5 MG TAB PO SCH (08:54)
[2021-05-26] MEDS: CEFTRIAXONE 1 GM in SODIUM CHLORIDE 0.9% 50ML 50 ML IV SCH (08:54)
[2021-05-26 11:15] VITALS: BP 166/55
[2021-05-26] MEDS: INSULIN REGULAR, HUMAN 100 UNIT/1 ML SQ SCH ×3 (11:30→16:30)
[2021-05-26] MEDS: IRON SUCROSE 100 MG in SODIUM CHLORIDE 0.9% 100 ML 100 ML IV SCH (11:35)
[2021-05-26 15:50] VITALS: BP 165/62
[2021-05-26] MEDS: LISINOPRIL 10 MG TAB PO SCH (16:38)
[2021-05-26] MEDS ORDERED: FLUCONAZOLE 100 MG TAB PO SCH (18:00)
[2021-05-26] MEDS ORDERED: TERCONAZOLE VG SCH (21:00)
== END 2021-05-26 16:20 | disposition home or self-care (01) | DRG 871 ==
LOC: ER 19:36 → ERHOLD 22:47 → MED/SURG2 23:32
DX: A41.9 Sepsis, unspecified organism (principal); J96.01 Acute respiratory failure with hypoxia; J18.1 Lobar pneumonia, unspecified organism; J44.0 Chronic obstructive pulmonary disease with (acute) lower respiratory infection; D50.0 Iron deficiency anemia secondary to blood loss (chronic); E87.6 Hypokalemia; I10 Essential (primary) hypertension; E11.65 Type 2 diabetes mellitus with hyperglycemia; Z20.822 Contact with and (suspected) exposure to COVID-19; J45.909 Unspecified asthma, uncomplicated; E78.5 Hyperlipidemia, unspecified; E03.9 Hypothyroidism, unspecified; D51.9 Vitamin B12 deficiency anemia, unspecified
CPT/HCPCS: 36415; 71045; 71046; 71260; 74230; 80048; 80053; 82270; 82550; 82553; 82607; 82728; 82746; 82948; 83540; 83605; 83735; 84466; 84484; 85025; 87040; 87400; 93005; 93306; 96360; 96372; 99251; 99284; J0456; J0696; J1756; J1817; J2920; J3420; J7030; J7050; Q9967; U0002

== ENCOUNTER → 2021-12-19 | Outpatient (CLI) | payer MEDICARE, OTHER ==
[~2021-12-19] MED LIST changes: +MYSOLINE50 MG PO
== END ==
LOC: SLEEP 19:17
DX: G47.33 Obstructive sleep apnea (adult) (pediatric) (principal)
CPT/HCPCS: 95811

== ENCOUNTER 2022-02-15 14:17 | Inpatient (IN) | payer MEDICARE, OTHER ==
[~2022-02-15] VITALS: Ht 152.4 cm; Wt 82.3 kg
[~2022-02-15 14:17] MED LIST changes: -GABAPENTIN100 MG; +GABAPENTIN100 MG PO
[2022-02-15 15:33] LABS: INR 0.96; PROTHROMBIN TIME 13.7 seconds (11.9-14.5)
[2022-02-15 15:34] LABS: PARTIAL THROMBOPLASTIN TIME 27.2 seconds (23.8-35.5)
[2022-02-15 15:36] LABS: ALBUMIN 3.3 g/dL (3.5-5.0); ALBUMIN/GLOBULIN RATIO 0.9 (0.8-2.0); ANION GAP 15.1 mmol/L (8-16); CALCIUM 8.3 mg/dL (8.4-10.2); CREATININE, SERUM 0.87 mg/dL (0.57-1.11); POTASSIUM 4.1 mmol/L (3.5-5.1)
[2022-02-15 16:37] LABS: BASOPHILS % 0.4 % (0.0-1.0); EOSINOPHILS % 0.4 % (0.0-6.0); HEMATOCRIT 37.3 % (34.2-44.1); HEMOGLOBIN 10.9 g/dL (12.0-16.0); LYMPHOCYTES % 10.8 % (18.0-39.1); MEAN CORPUSCULAR HEMOGLOBIN 23.7 pg (28-32); MEAN CORPUSCULAR HGB CONC 29.2 g/dL (31-35); MEAN CORPUSCULAR VOLUME 81.3 fL (81-99); MONOCYTES # (AUTO) 0.8 (0.2-0.8); NEUTROPHILS # (AUTO) 7.1 (2.1-6.9); NEUTROPHILS % 78.8 % (38.7-80.0); PLATELET COUNT 393 x10e3/uL (140-360); RED BLOOD COUNT 4.59 x10e6/uL (3.6-5.1); RED CELL DISTRIBUTION WIDTH 16.5 % (11.7-14.4)
[2022-02-15] MEDS ORDERED: DEXAMETHASONE SOD PHOS 10 MG/1 ML VIAL IV SCH ×2 (17:00→19:30)
[2022-02-15] MEDS ORDERED: ONDANSETRON HCL INJ 2MG/ML 2ML 2 MG/ML VIAL IV PRN (17:15)
[2022-02-15] MEDS ORDERED: DEXTROSE 50% SYRINGE 50 ML IV PRN (17:15)
[2022-02-15] MEDS: ALBUTEROL/IPRATROPIUM 3 ML NEB NEB SCH (19:00)
[2022-02-15 20:45] VITALS: BP 132/52
[2022-02-15 21:21] LABS: CLARITY,URINE CLEAR (CLEAR); COLOR,URINE YELLOW (YELLOW); KETONES,URINE NEGATIVE (NEGATIVE); LEUKOCYTE ESTERASE ,URINE TRACE (NEGATIVE); NITRITE,URINE NEGATIVE (NEGATIVE); PROTEIN,URINE DIPSTICK NEGATIVE (NEGATIVE); URINE UROBILINOGEN 0.2 mg/dL (0.2 - 1)
[2022-02-15 21:30] LABS: BACTERIA,URINE FEW /HPF; EPITHELIAL CELLS,URINE MODERATE /LPF; WBC,URINE (MAN) 0-5 /HPF (0-5)
[2022-02-15 21:45] VITALS: BP 132/52
[2022-02-15] MEDS ORDERED: OMEPRAZOLE40 MG PO (22:16)
[2022-02-15] MEDS ORDERED: GLIMEPIRIDE2 MG PO (22:16)
[2022-02-15] MEDS ORDERED: TRELEGY ELLIPT1 EACH INH (22:16)
[2022-02-15] MEDS ORDERED: LISINOPRIL40 MG PO (22:16)
[2022-02-15] MEDS ORDERED: ALBUTEROL HFA 90 MCG INH (22:16)
[2022-02-15] MEDS ORDERED: MELATONIN3 MG PO (22:18)
[2022-02-15] MEDS ORDERED: BENEFIBER1 EAC1 PO (22:18)
[2022-02-15] MEDS ORDERED: PROBIOTIC & AC1 EACH PO (22:18)
[2022-02-16] VITALS (8 sets, daily range): BP systolic 126–163; BP diastolic 44–87
[2022-02-16] MEDS ORDERED: GUAIFENESIN/DEXTROMETHORPHAN LIQD 5 ML UDC PO PRN (01:45)
[2022-02-16] MEDS ORDERED: HYDRALAZINE HCL 20 MG/ML VIAL IV PRN (01:45)
[2022-02-16] MEDS ORDERED: DEXTROSE 50% SYRINGE 50 ML IV PRN (01:45)
[2022-02-16] MEDS ORDERED: ACETAMINOPHEN 325 MG TAB PO PRN (01:45)
[2022-02-16] MEDS ORDERED: REMDESIVIR 200MG 200 MG in SODIUM CHLORIDE 0.9% 100 ML IV ONE (02:00)
[2022-02-16] MEDS: ALBUTEROL/IPRATROPIUM 3 ML NEB NEB SCH ×2 (02:45→07:00)
[2022-02-16] MEDS: LEVOTHYROXINE SODIUM 50 MCG TAB PO SCH (05:58)
[2022-02-16 06:22] LABS: BASOPHILS % 0.3 % (0.0-1.0); HEMATOCRIT 37.7 % (34.2-44.1); HEMOGLOBIN 11.1 g/dL (12.0-16.0); LYMPHOCYTES # (AUTO) 0.6 (1.0-3.2); LYMPHOCYTES % 9.9 % (18.0-39.1); MEAN CORPUSCULAR HEMOGLOBIN 23.8 pg (28-32); MEAN CORPUSCULAR HGB CONC 29.4 g/dL (31-35); MEAN CORPUSCULAR VOLUME 80.9 fL (81-99); MONOCYTES # (AUTO) 0.1 (0.2-0.8); MONOCYTES % 2.2 % (4.4-11.3); NEUTROPHILS # (AUTO) 5.6 (2.1-6.9); NEUTROPHILS % 87.1 % (38.7-80.0); PLATELET COUNT 374 x10e3/uL (140-360); RED BLOOD COUNT 4.66 x10e6/uL (3.6-5.1); RED CELL DISTRIBUTION WIDTH 16.6 % (11.7-14.4)
[2022-02-16 06:53] LABS: ANION GAP 15.2 mmol/L (8-16); CALCIUM 8.5 mg/dL (8.4-10.2); CREATININE, SERUM 0.86 mg/dL (0.57-1.11); POTASSIUM 4.2 mmol/L (3.5-5.1)
[2022-02-16] MEDS: GABAPENTIN 100 MG CAP PO SCH ×3 (08:19→21:11)
[2022-02-16] MEDS: MULTIVITAMINS/MINERALS TAB PO SCH (08:20)
[2022-02-16] MEDS: PANTOPRAZOLE SOD 40 MG TABEC PO SCH (08:20)
[2022-02-16] MEDS: AMLODIPINE BESYLATE 5 MG TAB PO SCH ×2 (08:20→17:26)
[2022-02-16] MEDS: ESCITALOPRAM OXALATE 10 MG TAB PO SCH (08:21)
[2022-02-16] MEDS: LISINOPRIL 20 MG TAB PO SCH (08:22)
[2022-02-16] MEDS: INSULIN REGULAR, HUMAN 100 UNIT/1 ML SQ SCH ×4 (08:33→20:54)
[2022-02-16] MEDS: METFORMIN HCL 500 MG TAB PO SCH ×2 (08:34→17:26)
[2022-02-16] MEDS ORDERED: CEFTRIAXONE 1 GM VIAL IV ONE (09:00)
[2022-02-16] MEDS: METOPROLOL TARTRATE 25 MG TAB PO SCH ×2 (09:00→17:00)
[2022-02-16] MEDS ORDERED: SODIUM CHLORIDE 0.9% 250ML 250 ML ONE (09:03)
[2022-02-16] MEDS ORDERED: REMDESIVIR 100MG 200 MG in SODIUM CHLORIDE 0.9% 100 ML IV ONE (11:00)
[2022-02-16] MEDS: IPRATROPIUM/ALBUTEROL SULFATE 4 GM INH INH SCH ×2 (12:34→20:10)
[2022-02-16] MEDS: BUDESONIDE/FORMOTEROL FUMARATE 80/4.5MCG 6.9 GM INH AEROSOL IH SCH ×2 (12:34→20:10)
[2022-02-16] MEDS: ENOXAPARIN SOD INJ 40 MG/0.4 ML SYR SC SCH (17:25)
[2022-02-16] MEDS ORDERED: DEXAMETHASONE SOD PHOS 10 MG/1 ML VIAL IV SCH (19:30)
[2022-02-16] MEDS ORDERED: Vancomycin IV 1 GM in SODIUM CHLORIDE 0.9% 250ML 250 ML IV ONE (19:30)
[2022-02-16] MEDS ORDERED: REMDESIVIR 100MG 100 MG in SODIUM CHLORIDE 0.9% 100 ML IV SCH (21:00)
[2022-02-16] MEDS: MELATONIN 3 MG TAB PO PRN (21:11)
[2022-02-16] MEDS: PRIMIDONE 50 MG TAB PO SCH (21:11)
[2022-02-16] MEDS: ATORVASTATIN 10 MG TAB PO SCH (21:11)
[2022-02-17] VITALS (7 sets, daily range): BP systolic 121–198; BP diastolic 45–65
[2022-02-17] MEDS: IPRATROPIUM/ALBUTEROL SULFATE 4 GM INH INH SCH ×4 (01:25→20:10)
[2022-02-17] MEDS: LEVOTHYROXINE SODIUM 50 MCG TAB PO SCH (06:48)
[2022-02-17] MEDS: INSULIN REGULAR, HUMAN 100 UNIT/1 ML SQ SCH ×4 (07:30→21:08)
[2022-02-17] MEDS: AMLODIPINE BESYLATE 5 MG TAB PO SCH ×2 (09:02→16:56)
[2022-02-17] MEDS: MULTIVITAMINS/MINERALS TAB PO SCH (09:02)
[2022-02-17] MEDS: GABAPENTIN 100 MG CAP PO SCH ×3 (09:02→21:02)
[2022-02-17] MEDS: LISINOPRIL 20 MG TAB PO SCH (09:03)
[2022-02-17] MEDS: METOPROLOL TARTRATE 25 MG TAB PO SCH ×2 (09:03→16:59)
[2022-02-17] MEDS: ESCITALOPRAM OXALATE 10 MG TAB PO SCH (09:04)
[2022-02-17] MEDS: PANTOPRAZOLE SOD 40 MG TABEC PO SCH (09:04)
[2022-02-17] MEDS: METFORMIN HCL 500 MG TAB PO SCH ×2 (09:04→16:56)
[2022-02-17] MEDS: BUDESONIDE/FORMOTEROL FUMARATE 80/4.5MCG 6.9 GM INH AEROSOL IH SCH ×2 (09:20→20:10)
[2022-02-17] MEDS ORDERED: ONDANSETRON HCL 4 MG ORAL DISINTEGRATING TAB PO PRN (11:30)
[2022-02-17] MEDS ORDERED: REMDESIVIR 100MG 200 MG in SODIUM CHLORIDE 0.9% 100 ML IV ONE (14:00)
[2022-02-17] MEDS ORDERED: REMDESIVIR 100MG 100 MG in SODIUM CHLORIDE 0.9% 100 ML IV SCH (14:00)
[2022-02-17] MEDS: DEXAMETHASONE 4 MG TAB PO SCH (14:53)
[2022-02-17] MEDS: REMDESIVIR 100MG 100 MG in SODIUM CHLORIDE 0.9% 100 ML IV SCH (15:06)
[2022-02-17] MEDS: ENOXAPARIN SOD INJ 40 MG/0.4 ML SYR SC SCH (16:56)
[2022-02-17] MEDS: PRIMIDONE 50 MG TAB PO SCH (21:02)
[2022-02-17] MEDS: ATORVASTATIN 10 MG TAB PO SCH (21:02)
[2022-02-17] MEDS: MELATONIN 3 MG TAB PO PRN (22:12)
[2022-02-18] VITALS: BP 152/47
[2022-02-18] MEDS: IPRATROPIUM/ALBUTEROL SULFATE 4 GM INH INH SCH ×3 (02:20→12:27)
[2022-02-18 04:00] VITALS: BP 140/43
[2022-02-18] MEDS: LEVOTHYROXINE SODIUM 50 MCG TAB PO SCH (05:39)
[2022-02-18] MEDS: BUDESONIDE/FORMOTEROL FUMARATE 80/4.5MCG 6.9 GM INH AEROSOL IH SCH (07:00)
[2022-02-18] MEDS: INSULIN REGULAR, HUMAN 100 UNIT/1 ML SQ SCH ×2 (07:30→12:43)
[2022-02-18 07:43] VITALS: BP 171/46
[2022-02-18 08:59] VITALS: BP 171/46
[2022-02-18] MEDS ORDERED: AZITHROMYCIN 250 MG TAB PO SCH (09:00)
[2022-02-18] MEDS: MULTIVITAMINS/MINERALS TAB PO SCH (10:04)
[2022-02-18] MEDS: LISINOPRIL 20 MG TAB PO SCH (10:04)
[2022-02-18] MEDS: AMLODIPINE BESYLATE 5 MG TAB PO SCH (10:05)
[2022-02-18] MEDS: PANTOPRAZOLE SOD 40 MG TABEC PO SCH (10:05)
[2022-02-18] MEDS: METFORMIN HCL 500 MG TAB PO SCH (10:05)
[2022-02-18] MEDS: ESCITALOPRAM OXALATE 10 MG TAB PO SCH (10:05)
[2022-02-18] MEDS: METOPROLOL TARTRATE 25 MG TAB PO SCH (10:06)
[2022-02-18] MEDS: GABAPENTIN 100 MG CAP PO SCH ×2 (10:41→14:48)
[2022-02-18 11:33] VITALS: BP 165/39
[2022-02-18] MEDS ORDERED: AZITHROMYCIN250 MG PO (12:24)
[2022-02-18] MEDS ORDERED: PREDNISONE5 MG PO (12:24)
[2022-02-18] MEDS ORDERED: REMDESIVIR 100MG 100 MG in SODIUM CHLORIDE 0.9% 100 ML IV SCH (14:00)
[2022-02-18] MEDS: REMDESIVIR 100MG 100 MG in SODIUM CHLORIDE 0.9% 100 ML IV SCH (14:48)
[2022-02-18] MEDS: DEXAMETHASONE 4 MG TAB PO SCH (14:48)
[2022-02-18] MEDS ORDERED: HYDRALAZINE HCL25 MG PO (14:59)
== END 2022-02-18 15:31 | disposition home or self-care (01) | DRG 177 ==
LOC: ER 14:40 → ERHOLD 17:08 → MED/SURG2 21:10
PROC: 3E0333Z Introduction of Anti-inflammatory into Peripheral Vein, Percutaneous Approach (ICD-10-PCS; 2022-02-15)
PROC: XW033E5 Introduction of Remdesivir Anti-infective into Peripheral Vein, Percutaneous Approach, New Technology Group 5 (ICD-10-PCS; principal; 2022-02-16)
DX: U07.1 COVID-19 (principal); J12.82 Pneumonia due to coronavirus disease 2019; J96.01 Acute respiratory failure with hypoxia; J44.1 Chronic obstructive pulmonary disease with (acute) exacerbation; E11.65 Type 2 diabetes mellitus with hyperglycemia; J32.9 Chronic sinusitis, unspecified; E66.9 Obesity, unspecified; I10 Essential (primary) hypertension; K21.9 Gastro-esophageal reflux disease without esophagitis; M19.90 Unspecified osteoarthritis, unspecified site; G47.33 Obstructive sleep apnea (adult) (pediatric); Z68.35 Body mass index [BMI] 35.0-35.9, adult; Z88.1 Allergy status to other antibiotic agents; Z87.891 Personal history of nicotine dependence; Z79.84 Long term (current) use of oral hypoglycemic drugs
CPT/HCPCS: 36415; 71045; 80048; 80053; 81001; 82948; 83605; 83880; 85025; 85610; 85730; 87040; 87071; 87086; 87205; 93005; 94640; 94664; 94760; 94799; 99251; 99285; J0248; J0456; J0696; J1100; J1650; J1817; J3370; J7050

== ENCOUNTER → 2022-03-16 | Outpatient (CLI) | payer MEDICARE, OTHER ==
[~2022-03-16] MED LIST changes: +ALBUTEROL HFA 90 MCG INH; +AZITHROMYCIN250 MG PO; +BENEFIBER1 EAC1 PO; +HYDRALAZINE HCL25 MG PO; +LISINOPRIL40 MG PO; +OMEPRAZOLE40 MG PO; +PREDNISONE5 MG PO; +PROBIOTIC & AC1 EACH PO; +TRELEGY ELLIPT1 EACH INH
== END ==
LOC: SLEEP 19:30
PROVIDERS: ATTEND Otolaryngology
DX: G47.33 Obstructive sleep apnea (adult) (pediatric) (principal)
CPT/HCPCS: 95811

== ENCOUNTER 2023-01-28 15:28 | Emergency (ER) | payer MEDICARE, OTHER ==
[~2023-01-28] VITALS: Ht 152.4 cm; Wt 79.4 kg
[~2023-01-28 15:28] MED LIST changes: +DEXAMETHASONE SOD PHOS 10 MG/1 ML VIAL IV ONE
[2023-01-28] MEDS ORDERED: ALBUTEROL SULF 0.083% NEB SOLN 3 ML NEB NEB STA ×2 (15:38→16:58)
[2023-01-28] MEDS ORDERED: IPRATROPIUM BROMIDE 0.02% 2.5 ML NEB NEB ONE (15:45)
[2023-01-28 15:51] VITALS: PULSE 56; RESP 14; O2SAT 94
[2023-01-28 16:05] LABS: ALBUMIN 3.1 g/dL (3.5-5.0); ALBUMIN/GLOBULIN RATIO 0.9 (0.8-2.0); ANION GAP 13.9 mmol/L (8-16); CALCIUM 8.7 mg/dL (8.4-10.2); CREATININE, SERUM 0.7 mg/dL (0.57-1.11); POTASSIUM 3.9 mmol/L (3.5-5.1)
[2023-01-28 16:06] VITALS: PULSE 60; RESP 16
[2023-01-28 16:39] LABS: BASOPHILS # (AUTO) 0.1 (0.0-0.1); EOSINOPHILS # (AUTO) 0.2 (0.0-0.4); EOSINOPHILS % 1.2 % (0.0-6.0); LYMPHOCYTES # (AUTO) 2.1 (1.0-3.2); LYMPHOCYTES % 16.4 % (18.0-39.1); MEAN CORPUSCULAR HEMOGLOBIN 22.9 pg (28-32); MEAN CORPUSCULAR HGB CONC 28.6 g/dL (31-35); MEAN CORPUSCULAR VOLUME 80.3 fL (81-99); MONOCYTES # (AUTO) 1.2 (0.2-0.8); MONOCYTES % 9.5 % (4.4-11.3); NEUTROPHILS # (AUTO) 8.9 (2.1-6.9); NEUTROPHILS % 71.7 % (38.7-80.0); PLATELET COUNT 458 x10e3/uL (140-360); RED BLOOD COUNT 4.36 x10e6/uL (3.6-5.1); RED CELL DISTRIBUTION WIDTH 16.1 % (11.7-14.4)
[2023-01-28] MEDS ORDERED: DOXYCYCLINE HY100 MG PO (17:42)
[2023-01-28 17:49] VITALS: O2SAT 96
== END 2023-01-28 18:15 | disposition home or self-care (01) ==
LOC: ER 15:35
DX: R06.00 Dyspnea, unspecified (principal); R07.9 Chest pain, unspecified; R50.9 Fever, unspecified; J44.9 Chronic obstructive pulmonary disease, unspecified; E78.5 Hyperlipidemia, unspecified; K21.9 Gastro-esophageal reflux disease without esophagitis
CPT/HCPCS: 36415; 71045; 80053; 83880; 84484; 85025; 93005; 94640; 94799; 99284

== ENCOUNTER → 2023-09-06 | Outpatient (REF) | payer MEDICARE, OTHER ==
[~2023-09-06] MED LIST changes: -DEXAMETHASONE SOD PHOS 10 MG/1 ML VIAL IV ONE; +DOXYCYCLINE HY100 MG PO
== END ==
LOC: RAD 14:13
PROVIDERS: ATTEND Nurse Practitioner Family
DX: J30.9 Allergic rhinitis, unspecified (principal); E66.9 Obesity, unspecified; K21.9 Gastro-esophageal reflux disease without esophagitis; I10 Essential (primary) hypertension; G47.33 Obstructive sleep apnea (adult) (pediatric); R91.8 Other nonspecific abnormal finding of lung field; J15.9 Unspecified bacterial pneumonia; Z86.73 Personal history of transient ischemic attack (TIA), and cerebral infarction without residual deficits; Z86.16 Personal history of COVID-19; Z87.891 Personal history of nicotine dependence
CPT/HCPCS: 71046

== ENCOUNTER → 2024-02-05 | Outpatient (REF) | payer MEDICARE, OTHER | LOC: MAMMO 12:34 | PROVIDERS: ATTEND Internal Medicine | DX: Z12.31 Encounter for screening mammogram for malignant neoplasm of breast (principal); M81.0 Age-related osteoporosis without current pathological fracture | CPT/HCPCS: 77067; 77080 ==

== ENCOUNTER → 2024-05-26 | Outpatient (REF) | payer MEDICARE, OTHER ==
[~2024-05-26] MED LIST changes: +IOPAMIDOL 370 MG/ML 100 ML INFUS..BTL INJ ONE
[2024-05-26 13:29] LABS: CREATININE, SERUM 0.78 mg/dL (0.57-1.11)
== END ==
LOC: CT 12:32
PROVIDERS: ATTEND Nurse Practitioner
DX: R10.32 Left lower quadrant pain (principal)
CPT/HCPCS: 36415; 74177; 82565; 84520; Q9967

== ENCOUNTER → 2024-07-25 | Day surgery (SDC) | payer MEDICARE, OTHER ==
[2024-07-23 15:32] LABS: BASOPHILS # (AUTO) 0.1 (0.0-0.1); BASOPHILS % 0.7 % (0.0-1.0); EOSINOPHILS # (AUTO) 0.1 (0.0-0.4); HEMATOCRIT 36.6 % (34.2-44.1); LYMPHOCYTES # (AUTO) 1.9 (1.0-3.2); LYMPHOCYTES % 20.8 % (18.0-39.1); MEAN CORPUSCULAR HEMOGLOBIN 25.4 pg (28-32); MEAN CORPUSCULAR HGB CONC 30.1 g/dL (31-35); MEAN CORPUSCULAR VOLUME 84.5 fL (81-99); MONOCYTES # (AUTO) 0.8 (0.2-0.8); MONOCYTES % 8.5 % (4.4-11.3); NEUTROPHILS # (AUTO) 6.3 (2.1-6.9); NEUTROPHILS % 68.7 % (38.7-80.0); PLATELET COUNT 315 x10e3/uL (140-360); RED BLOOD COUNT 4.33 x10e6/uL (3.6-5.1); RED CELL DISTRIBUTION WIDTH 15.9 % (11.7-14.4); WHITE BLOOD COUNT 9.21 x10e3/uL (4.8-10.8)
[~2024-07-25] MED LIST changes: +ALEVE220 M1 PO; +GLYCOPYRROLATE INJ 0.2 MG/ML VIAL ONE; -IOPAMIDOL 370 MG/ML 100 ML INFUS..BTL INJ ONE; +LIDOCAINE HCL 2% LOCAL INJ 5 ML SDV VIAL INJ ONE; +PRESERVISION A1 EAC3 PO; +PROPOFOL IV EMULSION 10 MG/ML 20 ML VIAL ONE; +VITAMIN D3 COM1 EACH PO; +ZYRTEC10 M3 PO
[2024-07-25] MEDS: LACTATED RINGER'S 1,000 ML ONE (13:48)
[2024-07-25 14:26] VITALS: TEMP 97.9
[2024-07-25 14:50] VITALS: BP 148/50; PULSE 50; RESP 16; O2SAT 97
== END | disposition home or self-care (01) ==
LOC: OR 11:36
PROVIDERS: ATTEND Internal Medicine Gastroenterology
DX: R93.5 Abnormal findings on diagnostic imaging of other abdominal regions, including retroperitoneum (principal); D12.8 Benign neoplasm of rectum; Z86.0100 Personal history of colon polyps, unspecified; K57.30 Diverticulosis of large intestine without perforation or abscess without bleeding; K64.8 Other hemorrhoids; K21.9 Gastro-esophageal reflux disease without esophagitis; G47.33 Obstructive sleep apnea (adult) (pediatric); B19.10 Unspecified viral hepatitis B without hepatic coma; E11.9 Type 2 diabetes mellitus without complications; I10 Essential (primary) hypertension; E78.5 Hyperlipidemia, unspecified; J45.909 Unspecified asthma, uncomplicated; G89.29 Other chronic pain; F41.9 Anxiety disorder, unspecified; F32.A Depression, unspecified; Z01.810 Encounter for preprocedural cardiovascular examination; Z01.812 Encounter for preprocedural laboratory examination; Z79.84 Long term (current) use of oral hypoglycemic drugs; Z79.1 Long term (current) use of non-steroidal anti-inflammatories (NSAID); Z86.73 Personal history of transient ischemic attack (TIA), and cerebral infarction without residual deficits
CPT/HCPCS: 36415; 45385; 85025; 88305; 93005; J2003; J2704; J7121; 45378

== ENCOUNTER 2024-09-03 10:53 | Outpatient (RCR) | payer MEDICARE, OTHER ==
[~2024-09-03 10:53] MED LIST changes: -GLYCOPYRROLATE INJ 0.2 MG/ML VIAL ONE; -LIDOCAINE HCL 2% LOCAL INJ 5 ML SDV VIAL INJ ONE; -PROPOFOL IV EMULSION 10 MG/ML 20 ML VIAL ONE
== END 2024-09-05 ==
LOC: OT 10:53
PROVIDERS: ATTEND Physician Assistant
DX: S42.291D Other displaced fracture of upper end of right humerus, subsequent encounter for fracture with routine healing (principal)

== ENCOUNTER → 2024-10-03 | Outpatient (RCR) | payer MEDICARE, OTHER | LOC: OT 09-10 12:50 | PROVIDERS: ATTEND Physician Assistant | DX: S42.291D Other displaced fracture of upper end of right humerus, subsequent encounter for fracture with routine healing (principal); M25.511 Pain in right shoulder; M25.611 Stiffness of right shoulder, not elsewhere classified; R53.1 Weakness ==

== ENCOUNTER 2024-10-31 14:00 | Outpatient (RCR) | payer MEDICARE, OTHER | END 2024-11-03 | LOC: OT 14:00 | PROVIDERS: ATTEND Physician Assistant | DX: S42.291D Other displaced fracture of upper end of right humerus, subsequent encounter for fracture with routine healing (principal) ==

== ENCOUNTER 2024-11-07 14:00 | Outpatient (RCR) | payer MEDICARE, OTHER | END 2024-12-03 | LOC: OT 14:00 | PROVIDERS: ATTEND Physician Assistant | DX: S42.291D Other displaced fracture of upper end of right humerus, subsequent encounter for fracture with routine healing (principal) ==